=== PATIENT | male | born 1965 | race Caucasian/White ===

== ENCOUNTER 2024-07-28 16:04 | Inpatient (IN) | payer MEDICAID ==
[~2024-07-28] VITALS: Ht 185.4 cm; Wt 141.0 kg
[2024-07-29] VITALS (9 sets, daily range): BP systolic 125–203; BP diastolic 6–116; PULSE 77–107; RESP 10–20; TEMP 97.6–98.3; O2SAT 95–97
[2024-07-29] MEDS ORDERED: mag hydrox/Alum hydrox/simeth 30ml oral suspension PO PRN (00:35)
[2024-07-29] MEDS ORDERED: potassium Cl 20 mEq SR tablet PO PRN ×2 (00:35)
[2024-07-29] MEDS ORDERED: acetaminophen 325mg tablet PO PRN (00:35)
[2024-07-29] MEDS ORDERED: magnesium sulf-water 2g/50mL 50 ML IV PRN (00:35)
[2024-07-29] MEDS ORDERED: magnesium Cl slow-release 64mg tablet PO PRN (00:35)
[2024-07-29] MEDS ORDERED: magnesium hydroxide 30ml (MOM) UD suspension PO PRN (00:35)
[2024-07-29] MEDS ORDERED: ondansetron/PF 4mg/2ml inj IV PRN (00:35)
[2024-07-29] MEDS ORDERED: potassium Cl 40MEQ/1/2NS 520ml 520 ML IV PRN (00:35)
[2024-07-29] MEDS ORDERED: magnesium sulf-water 4G/100mL 100 ML IV PRN (00:35)
[2024-07-29] MEDS ORDERED: HEPARIN DRIP-CARDIAC**PHARMACIST-TO-DOSE IV ONE (00:40)
[2024-07-29] MEDS: atorvastatin 20mg tablet PO SCH (00:50)
[2024-07-29] MEDS: lisinopril 10 MG tablet PO SCH (00:50)
[2024-07-29] MEDS ORDERED: heparin 25,000 UNIT/250ml bag 250 ML IV PRN (00:55)
[2024-07-29] MEDS ORDERED: heparin 10,000 units/1 ML INJ IV PRN (00:55)
[2024-07-29 01:09] LABS: BASOPHILS # (AUTO) 0.1 X10'3 (0-0.2); BASOPHILS % (AUTO) 1.1 % (0-1); EOSINOPHILS # (AUTO) 0.3 X10'3 (0-0.9); EOSINOPHILS % (AUTO) 3.4 % (0-6); HEMATOCRIT 47.1 % (42.0-52.0); HEMOGLOBIN 16.4 g/dl (14.0-17.9); LYMPHOCYTES # (AUTO) 1.8 X10'3 (1.1-4.8); MEAN CORPUSCULAR HEMOGLOBIN 30.8 PG (27.0-31.0); MEAN CORPUSCULAR HGB CONC 34.8 g/dL (33.0-36.5); MEAN CORPUSCULAR VOLUME 88.6 FL (78-98); MEAN PLATELET VOLUME 8.6 FL (7.4-10.4); MONOCYTES # (AUTO) 0.7 X10'3 (0-0.9); MONOCYTES % (AUTO) 7.6 % (2-12); NEUTROPHILS # (AUTO) 6.5 X10'3 (1.8-7.7); NEUTROPHILS % (AUTO) 68.9 % (42-75); PLATELET COUNT 107 X10'3 (140-440); RED BLOOD COUNT 5.32 X10'6 (4.70-6.10); RED CELL DISTRIBUTION WIDTH 13.9 % (11.5-14.5); WHITE BLOOD COUNT 9.4 X10'3 (4.5-11.0)
[2024-07-29 01:22] LABS: PROTHROMBIN TIME 10.7 SECONDS (9.0-12.0)
[2024-07-29 01:24] LABS: GLUCOSE 124 MG/DL (70-104); HEMOGLOBIN A1C 5.7 % (4.5-6.2)
[2024-07-29 01:25] LABS: ALBUMIN 3.4 G/DL (3.4-5.0); ANION GAP 7 (8-16); BLOOD UREA NITROGEN 24 MG/DL (7-18); BUN/CREATININE RATIO 24.2 (10.0-20.0); CALCIUM 8.8 MG/DL (8.5-10.1); CHLORIDE 103 MMOL/L (99-107); CREATININE 0.99 MG/DL (0.60-1.10); SODIUM 135 MMOL/L (135-145); TOTAL CARBON DIOXIDE 24.9 MMOL/L (24-32); eGFR 77 ML/MIN
[2024-07-29 01:30] LABS: POTASSIUM 3.9 MMOL/L (3.5-5.1)
[2024-07-29] MEDS ORDERED: nitroGLYCERIN 0.4mg SUBLingual tab SL PRN ×2 (01:30)
[2024-07-29] MEDS ORDERED: aminophylline 250mg/10ml inj. IV PRN (01:30)
[2024-07-29] MEDS ORDERED: metoprolol tartrate 1mg/ml inj IV PRN (01:30)
[2024-07-29 02:20] LABS: PRO BRAIN NATRIURETIC PEPTIDE 138 PG/ML (0-125)
[2024-07-29 05:29] LABS: CHOL/HDL RATIO 4.2 (0.00-4.99); CHOLESTEROL 105 MG/DL (0-200); HDL CHOLESTEROL 25 MG/DL (35-60); LDL CHOLESTEROL 67 MG/DL (50-100); TRIGLYCERIDES 92 MG/DL (20-135)
[2024-07-29] MEDS: acetaminophen 325mg tablet PO PRN (07:55)
[2024-07-29] MEDS: docusate sod 100mg capsule PO SCH (08:00)
[2024-07-29] MEDS: K and/or MAG REPLACEMENT MC SCH (08:00)
[2024-07-29] MEDS ORDERED: dextrose 50%-water 50ml dispensing syringe IV PRN ×2 (08:40)
[2024-07-29] MEDS ORDERED: glucagon, human recombinant 1mg kit SUBCUT PRN (08:40)
[2024-07-29] MEDS ORDERED: DEXTROSE 15 GM of carb/4 tabs (each vial/BOTTLE has 4 tablets) PO PRN ×2 (08:40)
[2024-07-29 09:08] LABS: BASOPHILS % (AUTO) 0.5 % (0-1); EOSINOPHILS # (AUTO) 0.2 X10'3 (0-0.9); EOSINOPHILS % (AUTO) 2.5 % (0-6); HEMATOCRIT 49.6 % (42.0-52.0); HEMOGLOBIN 17.4 g/dl (14.0-17.9); LYMPHOCYTES # (AUTO) 1.3 X10'3 (1.1-4.8); LYMPHOCYTES % (AUTO) 15.3 % (21-51); MEAN CORPUSCULAR HEMOGLOBIN 31.3 PG (27.0-31.0); MEAN CORPUSCULAR HGB CONC 35.1 g/dL (33.0-36.5); MEAN CORPUSCULAR VOLUME 89.2 FL (78-98); MEAN PLATELET VOLUME 8.3 FL (7.4-10.4); MONOCYTES # (AUTO) 0.6 X10'3 (0-0.9); MONOCYTES % (AUTO) 6.8 % (2-12); NEUTROPHILS # (AUTO) 6.6 X10'3 (1.8-7.7); NEUTROPHILS % (AUTO) 74.9 % (42-75); PLATELET COUNT 122 X10'3 (140-440); RED BLOOD COUNT 5.56 X10'6 (4.70-6.10); RED CELL DISTRIBUTION WIDTH 13.5 % (11.5-14.5); WHITE BLOOD COUNT 8.8 X10'3 (4.5-11.0)
[2024-07-29] MEDS: regadenoson 0.4mg/5ml syringe IV PRN (09:40)
[2024-07-29] MEDS ORDERED: FLU VACC TS2024-25(6MOS UP)/PF 45 MCG/0.5 ML SYRINGE IMVAC ONE (10:00)
[2024-07-29] MEDS: amLODIPine 5mg tablet PO SCH (13:09)
[2024-07-29] MEDS: aspirin 81mg, enteric-coated 1 TAB TABLET.DR PO SCH (13:09)
[2024-07-29] MEDS: carVEDilol 3.125mg tablet PO SCH (13:10)
[2024-07-29] MEDS ORDERED: PRAZ1CAP5 PO (14:27)
[2024-07-29] MEDS ORDERED: LOSA100T58 PO (14:27)
[2024-07-29] MEDS ORDERED: ALBUTEROL PO (14:27)
[2024-07-29] MEDS ORDERED: SACU1TAB7 PO (14:27)
[2024-07-29] MEDS ORDERED: LURA120T2 PO (14:27)
[2024-07-29] MEDS ORDERED: ATOR40TA PO (14:27)
[2024-07-29] MEDS ORDERED: LAMO100T2 PO ×2 (14:27)
[2024-07-29] MEDS ORDERED: TRINTELLIX PO (14:27)
[2024-07-29] MEDS ORDERED: TRAZ-256 PO (14:27)
[2024-07-29] MEDS ORDERED: PRAZ5CAP2 PO (14:27)
[2024-07-29] MEDS ORDERED: MELO-102 PO (14:27)
[2024-07-29] MEDS ORDERED: LURA20TA2 PO (14:27)
[2024-07-29] MEDS ORDERED: CANA1TAB8 PO (14:27)
[2024-07-29] MEDS ORDERED: BUDE10.2 INH (14:27)
[2024-07-29] MEDS ORDERED: ALBUTEROL PO PRN (16:45)
[2024-07-29] MEDS ORDERED: COR3.125T PO (16:49)
[2024-07-29] MEDS ORDERED: ASPI-1071 PO (16:49)
[2024-07-29] MEDS ORDERED: NOR5T PO (16:49)
[2024-07-29] MEDS ORDERED: LURASIDONE HCL PO SCH (17:00)
[2024-07-29] MEDS ORDERED: non-formulary drug (Budesonide/Formoterol Fumarate (Symbicort 160-4.5 Mcg Inhaler) 2 PUFFS INH SCH (20:00)
[2024-07-29] MEDS ORDERED: sacubitril/valsartan 49mg-51mg tablet PO SCH (20:00)
[2024-07-29] MEDS ORDERED: non-formulary drug (Trazodone HCl 2 TAB) PO SCH (21:00)
[2024-07-29] MEDS ORDERED: prazosin 5mg capsule PO SCH (21:00)
[2024-07-30] MEDS ORDERED: non-formulary drug (Atorvastatin Calcium* (Lipitor*) 1 TAB) PO SCH (08:00)
[2024-07-30] MEDS ORDERED: METFORMIN HCL PO SCH (08:00)
[2024-07-30] MEDS ORDERED: lurasidone 20mg tablet PO SCH (08:00)
[2024-07-30] MEDS ORDERED: CANAGLIFLOZIN PO SCH (08:00)
[2024-07-30] MEDS ORDERED: non-formulary drug (Losartan Potassium 1 TAB) PO SCH (08:00)
[2024-07-30] MEDS ORDERED: lamoTRIgine 100mg tablet PO SCH ×2 (08:00→16:00)
[2024-07-30] MEDS ORDERED: non-formulary drug (Meloxicam 1 TAB) PO SCH (08:00)
[2024-07-30] MEDS ORDERED: prazosin 1mg capsule PO SCH (16:00)
== END 2024-07-29 18:17 | disposition home or self-care (01) | DRG 203 ==
LOC: PCU 3S 23:59
PROVIDERS: ADMIT Internal Medicine; ATTEND Internal Medicine
PROC: 3E02340 Introduction of Influenza Vaccine into Muscle, Percutaneous Approach (ICD-10-PCS; principal; 2024-07-29)
PROC: 4A02XM4 Measurement of Cardiac Total Activity, External Approach (ICD-10-PCS; 2024-07-29)
PROC: 3E033HZ Introduction of Radioactive Substance into Peripheral Vein, Percutaneous Approach (ICD-10-PCS; 2024-07-29)
DX: R07.89 Other chest pain (principal); I11.0 Hypertensive heart disease with heart failure; I50.32 Chronic diastolic (congestive) heart failure; E11.9 Type 2 diabetes mellitus without complications; E78.5 Hyperlipidemia, unspecified; Z23 Encounter for immunization
CPT/HCPCS: 36415; 78452; 80048; 80061; 82948; 83036; 83880; 84484; 85025; 85610; 85730; 90686; 93017; 97161; 97530; A9500; G0378; J2785